=== PATIENT | female | born 1965 | race Caucasian/White ===

== ENCOUNTER 2017-03-04 22:27 | Emergency (ER) | payer MEDICAID ==
[~2017-03-04] VITALS: Ht 162.6 cm; Wt 65.5 kg
[2017-03-04 22:50] VITALS: Ht 162.6 cm; Wt 65.5 kg
[2017-03-05] MEDS ORDERED: PRED20TA PO (02:07)
[2017-03-05] MEDS ORDERED: METHYLPREDNISOLONE 125 MG INJ IM ONE (02:30)
[2017-03-05 02:55] VITALS: BP 124/74; PULSE 62; RESP 17; TEMP 98.1
--- NOTE | 2017-03-05 05:03 | ERD ---
ER Documentation Chief Complaint Date/Time DATE: 03/05/17 TIME: 05:01 Chief Complaint L face swelling started today; had allergc rx to hair dye 2 days ago HPI This is a 52-year-old female presenting to the emergency department complaining of left-sided facial swelling and itchiness status post dying her hair 2 days prior to being seen. Patient states that she has been taking Benadryl every 6 hours with some improvement however left upper eyelid is still swollen. Nice shortness of breath or chest pain as any neuro deficits ROS All systems reviewed and are negative except as per history of present illness. Medications Home Meds Active Scripts Prednisone* (Prednisone*) 20 Mg Tab, 40 MG PO DAILY for 4 Days, TAB Prov:CYNTHIA COLLINS PA-C 03/05/17 Allergies Allergies: Coded Allergies: No Known Allergy (Unverified , 03/04/17) PMhx/Soc Medical and Surgical Hx: pt denies Medical Hx History of Surgery: Yes (HYSTERECTOMY) Anesthesia Reaction: No Hx Neurological Disorder: No Hx Respiratory Disorders: No Hx Cardiac Disorders: No Hx Psychiatric Problems: No Hx Miscellaneous Medical Probl: No Hx Alcohol Use: No Hx Substance Use: No Hx Tobacco Use: No Smoking Status: Never smoker Physical Exam Vitals Vital Signs Date Time Temp Pulse Resp B/P Pulse Ox O2 Delivery O2 Flow Rate FiO2 03/05/17 02:55 98.1 62 17 124/74 98 Room Air 03/04/17 22:50 98.0 70 20 114/75 97 Physical Exam GENERAL: well-developed/well-nourished, in no apparent distress, non-toxic appearing HENT: NC/AT, bilateral tympanic membrane is normal with good cone of light, nares patent, oropharynx clear without exudates EYES: Conjunctiva normal, PERRLA, EOMI, no nystagmus noted NECK: Supple, no lymphadenopathy PULM: CTA bilaterally, no rales, rhonchi, or wheezing heard CV: Normal S1S2, RRR, good capillary refill GI: Soft, non-distended, normal bowel sounds, non-tender BACK: No midline tenderness, no masses, No CVAT EXT: No clubbing, cyanosis, or edema NEURO: Alert and orientated to person, place, and time. CN II-IIX intact. Gait and coordination were normal. 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 Patient had no evidence of anaphylaxis. She had no neuro deficits. Patient was given Solu-Medrol in the ED and a prescription for prednisone for the next 4 days. Patient stable to be discharged home Departure Diagnosis: Primary Impression: Allergic reaction Condition: Stable Patient Instructions: First Aid: Allergic Reactions Additional Instructions: FOLLOW UP WITH YOUR PRIMARY CARE PHYSICIAN TOMORROW.Return to this facility if you are not improving as expected. Take all medicines as directed. Return to this facility if you are not improving as expected. CYNTHIA COLLINS PA-C Mar 05, 2017 05:03
[2017-03-05] MEDS ORDERED: BEN25 PO (19:37)
== END 2017-03-05 02:54 | disposition home or self-care (01) ==
LOC: FTE 22:27
DX: T65.6X1A Toxic effect of paints and dyes, not elsewhere classified, accidental (unintentional), initial encounter (principal)
CPT/HCPCS: 96372; J2930; Z7502

== ENCOUNTER 2017-03-05 17:41 | Emergency (ER) | payer MEDICAID ==
[~2017-03-05] VITALS: Ht 157.5 cm; Wt 78.0 kg
[~2017-03-05 17:41] MED LIST: PRED20TA PO
[2017-03-05 17:43] VITALS: Ht 157.5 cm; Wt 78.0 kg
[2017-03-05] MEDS ORDERED: EPINEPHrine 1 MG INJ IM STA (19:36)
[2017-03-05] MEDS ORDERED: FAMOTIDINE 20 MG TAB PO STA (19:36)
[2017-03-05] MEDS ORDERED: DIPHENHYDRAMINE 25 MG CAP PO STA (19:36)
[2017-03-05] MEDS ORDERED: BEN25 PO (19:37)
[2017-03-05 20:08] VITALS: BP 153/71; PULSE 78; RESP 18
--- NOTE | 2017-03-05 20:43 | ERD ---
ER Documentation Chief Complaint Date/Time DATE: 03/05/17 TIME: 20:41 Chief Complaint face swelling, here this am at 0300 c/o same HPI Patient is a 52-year-old female with no medical problems who presents with swelling to the face. She was seen on March 04 and was given a shot of Solu- Medrol and discharged with prednisone. She has facial swelling which started after she dyed her hair with a new hair color. The patient said that the symptoms started yesterday but today were worse. She has some throat swelling as well. She does not remember the name of her primary doctor. Upon review of old medical records the patient has 2 visits to the ER since yesterday. ROS All systems reviewed and are negative except as per history of present illness. Medications Home Meds Active Scripts Diphenhydramine Hcl* (Benadryl*) 25 Mg Cap, 25 MG PO Q6 Y for ITCHING/RASH, #30 TAB Prov:JAYLEEN ESCAMILLA MD 03/05/17 Prednisone* (Prednisone*) 20 Mg Tab, 40 MG PO DAILY for 4 Days, TAB Prov:CYNTHIA COLLINS PA-C 03/05/17 Allergies Allergies: Coded Allergies: No Known Allergy (Unverified , 03/04/17) PMhx/Soc History of Surgery: Yes (HYSTERECTOMY) Anesthesia Reaction: No Hx Neurological Disorder: No Hx Respiratory Disorders: No Hx Cardiac Disorders: No Hx Psychiatric Problems: No Hx Miscellaneous Medical Probl: No Hx Alcohol Use: No Hx Substance Use: No Hx Tobacco Use: No Smoking Status: Never smoker FmHx Family History: No diabetes Physical Exam Vitals Vital Signs Date Time Temp Pulse Resp B/P Pulse Ox O2 Delivery O2 Flow Rate FiO2 03/05/17 20:08 78 18 153/71 99 Room Air 03/05/17 17:43 98.7 87 18 141/81 96 Physical Exam Const: No acute distress Head: Atraumatic Eyes: Normal Conjunctiva ENT: Facial swelling mostly around the eyes Neck: Full range of motion..~ No meningismus. No stridor over the neck Resp: Clear to auscultation bilaterally Cardio: Regular rate and rhythm, no murmurs Abd: Soft, non tender, non distended. Normal bowel sounds Skin: No petechiae or rashes Back: No midline or flank tenderness Ext: No cyanosis, or edema Neur: Awake and alert Psych: Normal Mood and Affect Results 24 hrs Current Medications Medications (Trade) Dose Ordered Sig/Gabriela Route PRN Reason Start Time Stop Time Status Last Admin Dose Admin Diphenhydramine HCl (Benadryl) 25 mg ONCE STAT PO 03/05/17 19:36 03/05/17 19:37 DC 03/05/17 19:41 Epinephrine (EPINEPHrine) 0.3 mg ONCE STAT IM 03/05/17 19:36 03/05/17 19:37 DC 03/05/17 19:43 Famotidine (Pepcid) 20 mg ONCE STAT PO 03/05/17 19:36 03/05/17 19:37 DC 03/05/17 19:42 Procedures/MDM Patient is a 52-year-old female presents with appears to be allergic reaction to this new hair dye that she tried yesterday. She has already been given prednisone and I will told her to continue this. She was given epinephrine and Benadryl in the emergency department and will be discharged home. There is no tongue or throat swelling at this time. There is no stridor over the neck. I do not believe she requires further workup or admission the hospital. I doubt cellulitis or serious bacterial infection. The patient should follow-up with her primary doctor within 24-48 hours for reevaluation. Critical Care: Time: 35 minutes excluding all billable procedures. Treatments/Evaluations: Close monitoring and treatment of unstable vital signs, cardiorespiratory, and neurologic status, while maintaining tight balance of fluid, respiratory, and cardiac interventions. Departure Diagnosis: Primary Impression: Swelling Additional Impression: Allergic reaction Encounter type: subsequent encounter Qualified Code: T78.40XD - Allergic reaction, subsequent encounter Condition: Fair Patient Instructions: First Aid: Allergic Reactions Referrals: Your doctor Additional Instructions: Call your primary care doctor TOMORROW for an appointment during the next 1-2 days.See the doctor sooner or return here if your condition worsens before your appointment time. JAYLEEN SECAMILLA MD Mar 05, 2017 20:43
== END 2017-03-05 20:09 | disposition home or self-care (01) ==
LOC: FTE 17:41
DX: T65.6X1A Toxic effect of paints and dyes, not elsewhere classified, accidental (unintentional), initial encounter (principal)
CPT/HCPCS: 96372; J0171; Z7502; Z7610

== ENCOUNTER 2017-04-29 09:04 | Emergency (ER) | payer MEDICAID ==
[~2017-04-29] VITALS: Wt 65.0 kg
[~2017-04-29 09:04] MED LIST changes: +BEN25 PO
[2017-04-29] MEDS ORDERED: KETOROLAC 30 MG INJ IV STA (10:14)
[2017-04-29] MEDS ORDERED: SOD CHLORIDE 0.9% 1,000 ML IV STA (10:14)
[2017-04-29] MEDS ORDERED: ACETAMINOPHEN 500 MG TAB PO STA (10:14)
[2017-04-29] MEDS ORDERED: CEFTRIAXONE 1 GM/50 ML (PMX) 50 ML IVPB ONE (10:30)
[2017-04-29 10:50] LABS: BASOPHIL # 0.1 10^3/ul (0.0-0.1); BASOPHILS % 0.5 % (0.0-2.0); EOSINOPHILS % 0.3 % (0.0-7.0); HEMATOCRIT 45.4 % (37.0-47.0); HEMOGLOBIN 15.4 g/dl (12.0-16.0); LYMPHOCYTES # 2.9 10^3/ul (0.8-2.9); LYMPHOCYTES % 22.9 % (15.0-51.0); MEAN CORPUSCULAR HGB CONC 33.9 g/dl (32.0-37.0); MEAN CORPUSCULAR VOLUME 91.5 fl (82.0-101.0); MEAN PLATELET VOLUME 10.2 fl (7.4-10.4); NEUTROPHIL # 8.6 10^3/ul (1.6-7.5); PLATELET COUNT 319 10^3/UL (140-415); RED BLOOD COUNT 4.96 10^6/ul (4.20-5.40); WHITE BLOOD COUNT 12.7 10^3/ul (4.8-10.8)
[2017-04-29 10:55] LABS: ADD UMIC NO; UR ASCORBIC ACID NEGATIVE (NEGATIVE); UR BILIRUBIN (Dip) NEGATIVE (NEGATIVE); UR BLOOD (Dip) NEGATIVE (NEGATIVE); UR CLARITY CLEAR (CLEAR); UR COLOR YELLOW (YELLOW); UR GLUCOSE (Dip) NEGATIVE (NEGATIVE); UR KETONES (Dip) TRACE mg/dL (NEGATIVE); UR LEUKOCYTE ESTERASE (Dip) NEGATIVE Leu/ul (NEGATIVE); UR NITRITE (Dip) NEGATIVE (NEGATIVE); UR SPECIFIC GRAVITY (Dip) 1.016 (1.003-1.030); UR TOTAL PROTEIN (Dip) NEGATIVE (NEGATIVE); UR UROBILINOGEN (Dip) NEGATIVE (NEGATIVE)
[2017-04-29 11:19] LABS: ALBUMIN 4.7 g/dl (3.3-4.9); ALBUMIN/GLOBULIN RATIO 1.27; BILIRUBIN,INDIRECT 0.5 mg/dl (0-1.1); BILIRUBIN,TOTAL 0.5 mg/dl (0.2-1.3); CALCIUM 9.3 mg/dl (8.4-10.2); CREATININE 0.87 mg/dl (0.44-1.00); TOTAL PROTEIN 8.4 g/dl (6.1-8.1)
[2017-04-29 11:30] LABS: POTASSIUM 4.3 mmol/L (3.5-5.1)
[2017-04-29] MEDS ORDERED: IBUP800T25 PO (11:57)
[2017-04-29] MEDS ORDERED: ACET500C5 PO (11:57)
[2017-04-29 12:09] VITALS: BP 112/67; PULSE 78; RESP 18; TEMP 98.2
--- NOTE | 2017-04-29 12:16 | ERD ---
ER Documentation Chief Complaint Chief Complaint FEVER, HEADACHE, BODYACHES, ONSET 4 DAYS HPI 52-year-old female complaining of fever, body aches and headache 4 days. Denies cough but has mild sore throat. No abdominal pain. Diffuse back pain. No change in urination or bowel movement. No vomiting. Denies medical problems. NKDA. Surgical history is hysterectomy. Social history denies denies sick contacts. Has taken Advil, amoxicillin and NyQuil with no alleviation of symptoms. ROS All systems reviewed and are negative except as per history of present illness. Medications Home Meds Active Scripts Acetaminophen* (Tylophen*) 500 Mg Capsule, 1 CAP PO Q6H Y for PAIN AND OR ELEVATED TEMP, #20 CAP Prov:SHERRELL GALAN PA-C 04/29/17 Ibuprofen* (Motrin*) 800 Mg Tab, 800 MG PO Q6, #30 TAB Prov:SHERRELL GALAN PA-C 04/29/17 Diphenhydramine Hcl* (Benadryl*) 25 Mg Cap, 25 MG PO Q6 Y for ITCHING/RASH, #30 TAB Prov:JAYLEEN ESCAMILLA MD 03/05/17 Prednisone* (Prednisone*) 20 Mg Tab, 40 MG PO DAILY for 4 Days, TAB Prov:CYNTHIA COLLINS PA-C 03/05/17 Allergies Allergies: Coded Allergies: No Known Allergy (Unverified , 03/04/17) PMhx/Soc History of Surgery: Yes (HYSTERECTOMY) Anesthesia Reaction: No Hx Neurological Disorder: No Hx Respiratory Disorders: No Hx Cardiac Disorders: No Hx Psychiatric Problems: No Hx Miscellaneous Medical Probl: No Hx Alcohol Use: No Hx Substance Use: No Hx Tobacco Use: No Smoking Status: Never smoker Physical Exam Vitals Vital Signs Date Time Temp Pulse Resp B/P Pulse Ox O2 Delivery O2 Flow Rate FiO2 04/29/17 12:09 98.2 78 18 112/67 99 Room Air 04/29/17 09:06 103.3 104 18 113/76 99 Physical Exam GENERAL: The patient is well-appearing, well-nourished, in no acute distress HEENT: Atraumatic. Conjunctivae are pink. Pupils equal, round, and reactive to light. There is no scleral icterus. Tympanic membranes clear bilaterally. Oropharynx clear. No nystagmus or photophobia. NECK: C-spine is soft and supple. There is no meningismus. There is no cervical lymphadenopathy. CHEST: Clear to auscultation bilaterally. There are no rales, wheezes or rhonchi. HEART: Regular rate and rhythm. No murmurs, clicks, rubs or gallops. No S3 or S4. ABDOMEN:Soft, nontender and nondistended. Good bowel sounds. No rebound or guarding. No gross peritonitis. No gross organomegaly or masses. No Segura sign or McBurney point tenderness. BACK: Questionable CVA tenderness Result Diagram: 04/29/17 1025 04/29/17 1025 Results 24 hrs Laboratory Tests Test 04/29/17 10:25 White Blood Count 12.710^3/ul Red Blood Count 4.9610^6/ul Hemoglobin 15.4g/dl Hematocrit 45.4% Mean Corpuscular Volume 91.5fl Mean Corpuscular Hemoglobin 31.0pg Mean Corpuscular Hemoglobin Concent 33.9g/dl Red Cell Distribution Width 12.0% Platelet Count 33856^3/UL Mean Platelet Volume 10.2fl Neutrophils % 68.0% Lymphocytes % 22.9% Monocytes % 8.0% Eosinophils % 0.3% Basophils % 0.5% Nucleated Red Blood Cells % 0.0/100WBC Neutrophils # 8.610^3/ul Lymphocytes # 2.910^3/ul Monocytes # 1.010^3/ul Eosinophils # 0.010^3/ul Basophils # 0.110^3/ul Nucleated Red Blood Cells # 0.010^3/ul Urine Color YELLOW Urine Clarity CLEAR Urine pH 5.0 Urine Specific [place] 1.016 Urine Ketones TRACEmg/dL Urine Nitrite NEGATIVEmg/dL Urine Bilirubin NEGATIVEmg/dL Urine Urobilinogen NEGATIVEmg/dL Urine Leukocyte Esterase NEGATIVELeu/ul Urine Hemoglobin NEGATIVEmg/dL Urine Glucose NEGATIVEmg/dL Urine Total Protein NEGATIVEmg/dl Sodium Level 139mmol/L Potassium Level 4.3mmol/L Chloride Level 100mmol/L Carbon Dioxide Level 27mmol/L Anion Gap 16 Blood Urea Nitrogen 11mg/dl Creatinine 0.87mg/dl Glucose Level 106mg/dl Calcium Level 9.3mg/dl Total Bilirubin 0.5mg/dl Direct Bilirubin 0.00mg/dl Indirect Bilirubin 0.5mg/dl Aspartate Amino Transf (AST/SGOT) 19IU/L Alanine Aminotransferase (ALT/SGPT) 40IU/L Alkaline Phosphatase 65IU/L Total Protein 8.4g/dl Albumin 4.7g/dl Globulin 3.70g/dl Albumin/Globulin Ratio 1.27 Lipase 88U/L Serum HCG, Qualitative NEGATIVE Current Medications Medications (Trade) Dose Ordered Sig/Gabriela Route PRN Reason Start Time Stop Time Status Last Admin Dose Admin Sodium Chloride (NS) 1,000 ml @ 1,000 mls/hr Q1H STAT IV 04/29/17 10:14 04/29/17 11:13 DC 04/29/17 10:23 Ketorolac Tromethamine 30 mg 30 mg ONCE STAT IV 04/29/17 10:14 04/29/17 10:16 DC 04/29/17 10:24 Ceftriaxone Sodium (Rocephin) 50 ml @ 100 mls/hr ONCE ONCE IVPB 04/29/17 10:30 04/29/17 10:59 DC 04/29/17 10:24 Acetaminophen (Tylenol Tab) 1,000 mg ONCE STAT PO 04/29/17 10:14 04/29/17 10:16 DC 04/29/17 10:24 Procedures/MDM ER course: 1 L normal saline given in ED. IV Toradol and oral Tylenol given. Upon reevaluation states she stated her symptoms are improved. MDM: 52-year-old female complaining of body aches and fever 4 days. Patient's blood work is within normal limits and urine does not appear to be infected. I believe patient's symptoms are likely associated with viral symptoms. A low suspicion for meningitis or sepsis. Patient does not have nuchal rigidity on exam. I have low suspicion for acute abdomen as patient's exam is non- concerning. I have low suspicion for pyelonephritis as patient's urinalysis is within normal limits. Patient's symptoms improved with medication and fluids in the ED. Patient is discharged with strict ER precautions and recommended to follow-up with primary care within 1-2 days for close evaluation. Patient is discharged with strict ER precautions Departure Diagnosis: Primary Impression: Influenza Condition: Stable Patient Instructions: Influenza (Adult) Referrals: COMM[facility]ITY CLIN[facility] YOU HAVE RECEIVED A MEDICAL SCREENING EXAM AND THE RESULTS INDICATE THAT YOU DO NOT HAVE A CONDITION THAT REQUIRES URGENT TREATMENT IN THE EMERGENCY DEPARTMENT. FURTHER EVALUATION AND TREATMENT OF YOUR CONDITION CAN WAIT UNTIL YOU ARE SEEN IN YOUR DOCTORS OFFICE WITHIN THE NEXT 1-2 DAYS. IT IS YOUR RESPONSIBILITY TO MAKE AN APPOINTMENT FOR FOLOW-UP CARE. IF YOU HAVE A PRIMARY DOCTOR --you should call your primary doctor and schedule an appointment IF YOU DO NOT HAVE A PRIMARY DOCTOR YOU CAN CALL OUR PHYSICIAN REFERRAL HOTLINE AT IF YOU CAN NOT AFFORD TO SEE A PHYSICIAN YOU CAN CHOSE FROM THE FOLLOWING [facility] [address] [facility] [address] [facility] [place] [address] [facility] [address] [facility] [address] [facility]. [facility]. [address] Additional Instructions: FOLLOW UP WITH YOUR PRIMARY CARE PHYSICIAN TOMORROW.Return to this facility if you are not improving as expected. SHERRELL GALAN PA-C Apr 29, 2017 12:16
== END 2017-04-29 12:10 | disposition home or self-care (01) ==
LOC: FTE 09:04
DX: J11.1 Influenza due to unidentified influenza virus with other respiratory manifestations (principal)
CPT/HCPCS: 36415; 80053; 81003; 83690; 84703; 85025; 96374; 96375; J0696; J1885; J7030; Z7502; Z7610

== ENCOUNTER 2018-11-03 08:14 | Day surgery (SDC) | payer OTHER ==
[2018-10-31 16:11] VITALS: BMI 27.4
[~2018-11-03] VITALS: Ht 157.5 cm; Wt 67.6 kg
[2018-11-03] VITALS (12 sets, daily range): BP systolic 90–116; BP diastolic 57–74; PULSE 62–84; RESP 14–25; Ht 157.5 cm; Wt 67.6 kg
[~2018-11-03 08:14] MED LIST changes: +ACET500C5 PO; +IBUP800T48 PO; -PRED20TA PO
[2018-11-03] MEDS ORDERED: FEXO180T61 PO (08:39)
[2018-11-03] MEDS ORDERED: FLUT16SP17 NASAL (08:39)
[2018-11-03] MEDS ORDERED: CEFAZOLIN 2 GM/50 ML (PMX) 50 ML IVPB ONE (09:00)
[2018-11-03] MEDS ORDERED: SOD CHLORIDE 0.9% 1,000 ML IV ONE (09:00)
--- NOTE | 2018-11-03 09:57 | PREAC ---
Date/Time of Note Date/Time of Note DATE: 11/03/18 TIME: 09:54 Anesthesia Eval and Record Evaluation Time Pre-Procedure Interview DATE: 11/03/18 TIME: 09:54 Age 53 Sex female NPO: 8 hrs Preoperative diagnosis BACK MASS Planned procedure EXCISION OF BACK MASS Past Medical History Past Medical History: Includes (SEASONAL ALLERGIES) Surgery & Anesthesia Issues No known issue (hysterectomy, ) Meds Anticoagulation: No Beta Zhou within 24 hr: No Reason Beta Zhou not given: Pt. not on B-Zhou Reported Medications Fexofenadine Hcl* (Whit*) 180 Mg Tablet, 180 MG PO DAILY, #30 TAB 11/03/18 Fluticasone Propionate* (Fluticasone Propionate* Nasal) 50 Mcg/[place] - 16 Gm [place].susp, 1 SPRAY NASAL DAILY, #1 BOTTLE TO EACH NOSTRIL 11/03/18 Discontinued Scripts Acetaminophen* (Tylophen*) 500 Mg Capsule, 1 CAP PO Q6H PRN for PAIN AND OR ELEVATED TEMP, #20 CAP Prov:SHERRELL GALAN PA-C 04/29/17 Ibuprofen* (Motrin*) 800 Mg Tab, 800 MG PO Q6, #30 TAB Prov:SHERRELL GALAN PA-C 04/29/17 Diphenhydramine Hcl* (Benadryl*) 25 Mg Cap, 25 MG PO Q6 PRN for ITCHING/RASH, #30 TAB Prov:JAYLEEN ESCAMILLA MD 03/05/17 Prednisone* (Prednisone*) 20 Mg Tab, 40 MG PO DAILY for 4 Days, TAB Prov:CYNTHIA COLLINS PA-C 03/05/17 Current Medications Sodium Chloride 1,000 ml @ 75 mls/hr [id number] ONCE IV Last administered on 11/03/18at 08:53; Admin Dose 75 MLS/HR; Start 11/03/18 at 09:00; Stop 11/03/18 at 22:19 Meds reviewed: Yes Allergies Coded Allergies: No Known Allergy (Unverified , 11/03/18) Allergies Reviewed: Yes Labs/Studies Labs Reviewed: Reviewed by anesthesiologist test: N/A (pt had hysterectomy) Studies: ECG (nml, nsr), CXR (no active disease) Pre-procedure Exam Last vitals Vital Signs Date Temp Pulse Resp B/P (MAP) Pulse Ox O2 O2 Flow FiO2 Time Delivery Rate 11/03/18 98.5 76 16 111/69 96 Room Air 09:12 (83) Airway: Adequate mouth opening, Adequate thyromental dist Mallampati: Mallampati II Teeth: Abnormal (multiple missing molars/premolars) Lung: Normal Heart: Normal ASA Physical Status ASA physical status: 1 Emergency: None Planned Anesthetic General/MAC: ETT, LMA, MAC (to the discretion of the anesthesiologist) Pre-operative Attestations Prior to commencing anesthesia and surgery, the patient was re-evaluated, there was verification of: *The patient's identity *The results of appropriate recent lab work and preoperative vital signs *The above evaluation not changing prior to induction *Anesthetic plan, risk benefits, alternative and complications discussed with patient/family; questions answered; patient/family understands, accepts and wishes to proceed. DIMITRY PENA Nov 03, 2018 09:57
--- NOTE | 2018-11-03 11:42 | HPN ---
Date/Time of Note Date/Time of Note DATE: 11/03/18 TIME: 11:42 Interval H&P Admission Note Pt. seen H&P reviewed: No system changes GRECIA MORILLO MD Nov 03, 2018 11:42
[2018-11-03] MEDS ORDERED: BUPIVACAINE 0.25%/EPI (SDV) 30 ML INJ ONE (11:49)
[2018-11-03] MEDS ORDERED: FENTAnyl 50 MCG/ML VIAL ONE (12:02)
[2018-11-03] MEDS ORDERED: SUCCINYLCHOLINE CHLORIDE 100 MG/5 ML SYG IV ONE (12:23)
[2018-11-03] MEDS ORDERED: PROPOFOL 20 ML ONE (12:23)
[2018-11-03] MEDS ORDERED: GLYCOPYRROLATE 0.4 MG INJ ONE ×2 (12:23→12:53)
[2018-11-03] MEDS ORDERED: CEFAZOLIN 1 GM INJ ONE (12:23)
--- NOTE | 2018-11-03 12:49 | OPR ---
Date/Time of Note Date/Time of Note DATE: 11/03/18 TIME: 12:45 Operative Report Procedure Date: Nov 03, 2018 Preoperative Diagnosis Back mass Postoperative Diagnosis Back mass Operation/Procedure Performed Excision of back mass, subfascial, 5 cm Surgeon see signature line Occupational Therapy Asst None Anesthesia Type: general Anesthesiologist: MARIVEL SEQUEIRA Estimated Blood Loss: minimal Transfusion none Specimen Back mass Grafts/Implants none Complications none Pt Condition Post Procedure: stable Disposition: PACU Indications Patient is a 53-year-old [place]ian speaking female who presents to the office complaining of a mass of the midline lower back. She stated that this had been present for quite some time, but recently it has been growing and causing in creasing pain and discomfort especially while driving. Patient was diagnosed on physical exam as having a soft tissue mass of the lower back. She was therefore scheduled for elective excision for symptom relief and definitive pathological diagnosis. All risks and benefits of the procedure including, but not limited to: Wound infection, excessive bleeding, postoperative seroma/hematoma formation, mass recurrence, etc. were all explained to the patient in full detail. The patient fully understood and wished to proceed with the procedure. Informed consent was obtained. Procedure Description The patient was brought to the operating room and placed supine on the operating table. Bilateral sequential compression devices were placed on both lower extremities. A dose of broad-spectrum perioperative intravenous antibiotics was given. The mass which was located in the midline lower back was preoperatively marked and confirmed with the patient in the holding area. After achieving adequate general anesthesia the patient was positioned on the operating table in the right lateral decubitus position with the left side up. The back was then prepped and draped in standard surgical fashion. After performance of the surgical timeout 0.25% Marcaine with epinephrine was injected in a radial fashion around the area of the mass creating a field block. A transverse incision was then made over the mass using a 15 blade scalpel. Incision was carried down through the skin and subcutaneous tissues using Bovie electrocautery to the level of the fascia. The fascia was then incised and entered. A subfascial lipomatous neoplasm was identified sitting right on top of the muscle. It was circumferentially dissected free of surrounding tissues and delivered through the incision. It was transected at its base and passed off the field as specimen. It measured approximately 5 cm in maximal dimension. Hemostasis was then inspected for and noted to be adequate. The wound cavity was then irrigated with warm saline and the irrigant returned clear. The incision was then closed in layers using a running 3-0 Vicryl suture for the dermal and fascial layers. The skin was reapproximated using 4-0 Monocryl suture in a running subcuticular fashion. Further local anesthesia was applied around the skin of the incision site. The incision was then cleaned and Dermabond was applied. The patient was then awoken from anesthesia and transferred to the recovery room in stable condition. All counts were correct at the end of the case x2. GRECIA MORILLO MD Nov 03, 2018 12:49
[2018-11-03] MEDS ORDERED: ONDANSETRON 4 MG INJ ONE (12:52)
[2018-11-03] MEDS ORDERED: NEOSTIGMINE 3 MG/3 ML SYRINGE ONE (12:53)
[2018-11-03] MEDS ORDERED: KETOROLAC 30 MG INJ IV PRN (13:00)
[2018-11-03] MEDS ORDERED: IBUPROFEN 600 MG TAB PO PRN (13:00)
[2018-11-03] MEDS ORDERED: ONDANSETRON 4 MG INJ IV PRN (13:00)
[2018-11-03] MEDS ORDERED: HYDROCODONE/APAP (5/325) TAB PO PRN ×2 (13:00)
--- NOTE | 2018-11-03 16:59 | PAC ---
Date/Time of Note Date/Time of Note DATE: 11/03/18 TIME: 16:59 Post-Anesthesia Notes Post-Anesthesia Note Last documented vital signs Vital Signs Date Temp Pulse Resp B/P (MAP) Pulse Ox O2 O2 Flow FiO2 Time Delivery Rate 11/03/18 98.1 14:37 11/03/18 63 18 97/63 (74) 97 Room Air 14:00 11/03/18 8.0 12:57 Activity: WNL Respiratory function: WNL Cardiovascular function: WNL Mental status: Baseline Pain reasonably controlled: Yes Hydration appropriate: Yes Nausea/Vomiting absent: Yes MARIVEL SEQUEIRA Nov 03, 2018 16:59
== END 2018-11-03 15:11 | disposition home or self-care (01) ==
LOC: SDS 08:14
PROVIDERS: ATTEND Surgery
DX: D17.1 Benign lipomatous neoplasm of skin and subcutaneous tissue of trunk (principal)
CPT/HCPCS: 21933; 88307; J0690; J2405; J2710; J3010; Z7610